=== PATIENT | female | born 1995 | race Caucasian/White ===

== ENCOUNTER → 2019-12-03 10:39 | Oncology outpatient (ONC) | payer OTHER, MEDICAID, SELFPAY ==
[2019-12-03 11:02] VITALS: BP 127/77; PULSE 81; RESP 16; TEMP 37; O2SAT 98
[2019-12-03] MEDS: LEUPROLIDE DEPOT 11.25 MG SYR IM (11:04)
--- NOTE | 2019-12-03 12:16 | PC.NURSE ---
Addendum entered by Livia Nava R.N. 12/03/19 12:30: Dr. Malave' office called back and said patient's lupron was most likely a 1 time dose. If patient requires med in the future they will order something for anxiety. Original Note: ANXIETY Patient arrived at clinic for lupron injection. She reported that she has really bad anxiety related to medical procedures and has passed out in the past. Lidocaine injection was given prior to IM lupron, patient reported that this helped pain. She stated that she felt some nausea post injection. Message was left with Dr. Malave (A) to ask about a pre-med for anxiety before future injections.
== END ==
LOC: ONC 10:39
PROVIDERS: Referring Provider Obstetrics & Gynecology; Visit Provider Obstetrics & Gynecology
DX: F32.81 Premenstrual dysphoric disorder (principal)
CPT/HCPCS: 96372; J1950